=== PATIENT | female | born 1945 | race Caucasian/White ===

== ENCOUNTER 2019-03-11 15:08 | Emergency (ER) | payer MEDICARE, OTHER ==
[~2019-03-11] VITALS: Ht 175.3 cm; Wt 84.4 kg
[2019-03-11] MEDS ORDERED: SODIUM CHLORIDE 0.9% 1000ML 1,000 ML IV SCH (15:30)
[2019-03-11] MEDS ORDERED: ONDANSETRON HCL INJ 2MG/ML 2ML 2 MG/ML VIAL IV STA (15:30)
[2019-03-11] MEDS ORDERED: KETOROLAC TROMETHAMINE 30 MG/ML VIAL IV STA (15:39)
[2019-03-11] MEDS ORDERED: KETOROLAC TROMETHAMINE 30 MG/ML VIAL ONE (16:34)
[2019-03-11] MEDS ORDERED: SODIUM CHLORIDE 0.9% 1000ML 1,000 ML ONE (16:34)
[2019-03-11] MEDS ORDERED: ONDANSETRON HCL INJ 2MG/ML 2ML 2 MG/ML VIAL ONE (16:34)
--- NOTE | 2019-03-11 16:39 | Diagnostic Imaging Report ---
CT Abdomen and Pelvis without contrast INDICATION: Left lower back pain, ^[id number] ^1600 TECHNIQUE: Thin collimation axial images obtained from the diaphragm to the level of the pubic symphysis without nonionic intravenous contrast. Dose reduction techniques used: Automated exposure control, adjustment of the mAs and/or kVp according to patient size, standardized low-dose protocol, and/or iterative reconstruction technique. RADIATION DOSE: Total DLP: 785.44 mGy*cm Estimated effective dose: (DLP x 0.015 x size factor) mSv CTDIvol has been reviewed. It is below the limits set by the Radiation Protocol Committee (RPC). COMPARISON: None. ABDOMEN FINDINGS: Lung Bases: Moderate sized hiatal hernia.. Mild bibasilar atelectasis. The heart is normal in size. The descending thoracic aorta is tortuous Liver: Normal in attenuation without mass. Gallbladder: Present and appears normal. No ductal dilatation. Pancreas: Normal attenuation without mass. Spleen: Normal size without mass. Adrenal Glands: No evidence for mass. Kidneys: Right: No renal calculus. No cortical mass or hydronephrosis Left: Diffusely edematous with perinephric inflammation. No intrarenal calculus or cortical mass. There is moderate hydronephrosis. Lymph Nodes: No enlarged abdominal or periaortic lymph nodes. Aorta: Tortuous with diffuse calcifications. No aneurysmal dilatation PELVIS FINDINGS: Bowel: Stomach: Normal. Small Bowel: Normal in caliber with normal wall thickness. Large Bowel: Mild to moderate burden of stool throughout. Scattered diverticula. No associated inflammation. Appendix: Normal. Bladder: Contains a 3 mm calculus to the left of midline. Ureters: The right ureter is normal in diameter throughout its course. The left ureter is distended throughout its course. The bladder calculus may be within or just past the ureteral orifice. Uterus: Present and normal in morphology. No adnexal mass. Peritoneum/retroperitoneum: No free fluid or fluid collection. Bones: Degenerative changes throughout the lumbar spine superimposed on S-shaped scoliosis. No compression deformities. Grade 1 anterolisthesis of L5 on S1 with bilateral pars defects. No lytic or blastic lesions. Soft tissues: Unremarkable. IMPRESSION: 1. Left hydroureteronephrosis due to calculus in the left ureteral orifice or a recently passed calculus into the bladder. 2. Mild burden of diverticulosis coli. No evidence for bowel obstruction or inflammation. Signed by: Dr. Oralia Cardoza MD on 03/11/2019 4:35 PM
[2019-03-11] MEDS ORDERED: CEFTRIAXONE SOD 1 GM VIAL IV SCH (17:00)
[2019-03-11] MEDS ORDERED: CEFTRIAXONE SOD 1 GM/NS 50 ML 50 ML IV ONE (17:05)
[2019-03-11] MEDS ORDERED: CONCERTA54 MG (17:20)
[2019-03-11] MEDS ORDERED: NAMENDA10 MG (17:20)
[2019-03-11] MEDS ORDERED: PROPRANOLOL HCL80 MG PO (17:20)
[2019-03-11] MEDS ORDERED: CRESTOR10 MG (17:20)
[2019-03-11] MEDS ORDERED: ASPIRIN81 MG (17:20)
[2019-03-11] MEDS ORDERED: NEXIUM40 MG (17:20)
[2019-03-11] MEDS ORDERED: ABILIFY5 MG PO (17:20)
[2019-03-11] MEDS ORDERED: WELLBUTRIN SR150 MG (17:20)
[2019-03-11 17:37] LABS: BILIRUBIN,URINE NEGATIVE (NEGATIVE); CLARITY,URINE CLEAR (CLEAR); COLOR,URINE YELLOW (YELLOW); KETONES,URINE 1+ (NEGATIVE); LEUKOCYTE ESTERASE ,URINE SMALL (NEGATIVE); NITRITE,URINE NEGATIVE (NEGATIVE); PROTEIN,URINE DIPSTICK NEGATIVE (NEGATIVE); URINE UROBILINOGEN 0.2 mg/dL (0.2 - 1)
[2019-03-11 17:48] LABS: BACTERIA,URINE RARE /HPF; EPITHELIAL CELLS,URINE FEW /LPF
[2019-03-11] MEDS ORDERED: FLOMAX0.4 MG PO (17:53)
[2019-03-11] MEDS ORDERED: ONDANSETRON ODT8 MG PO (17:53)
[2019-03-11] MEDS ORDERED: ULTRAM 50MG50 MG PO ×2 (17:53→18:04)
[2019-03-11] MEDS ORDERED: NAPROSYN500 MG PO (17:53)
[2019-03-11] MEDS ORDERED: BACTRIM DS TAB1 EACH PO (17:54)
[2019-03-11] MEDS ORDERED: KETOROLAC TROME10 MG PO (18:00)
[2019-03-11 18:09] VITALS: BP 156/80
== END 2019-03-11 18:18 | disposition home or self-care (01) ==
LOC: FSED 15:08
DX: M54.5 Low back pain (principal); R11.2 Nausea with vomiting, unspecified; R10.9 Unspecified abdominal pain; N20.1 Calculus of ureter; I10 Essential (primary) hypertension; E78.5 Hyperlipidemia, unspecified; F32.9 Major depressive disorder, single episode, unspecified
CPT/HCPCS: 74176; 80053; 81001; 81003; 82553; 84484; 85025; 87086; 96374; 96375; 99284; J0696 ×2; J1885; J2405; J7030